=== PATIENT | female | born 1960 | race Caucasian/White ===

== ENCOUNTER 2024-07-12 09:23 | Day surgery (SDC) | payer OTHER ==
--- NOTE | 2024-07-10 15:31 | RAD REPORT ---
EXAM: Chest Pa And Lat (2 Views) HISTORY: 64 years Female Pre-op pending carpal tunnel release COMPARISON: None. FINDINGS: LUNGS/PLEURA: The lungs are clear. No pleural effusions or pneumothorax. No pulmonary edema. MEDIASTINUM: The mediastinal silhouette is within normal limits. CARDIAC: The cardiac silhouette is within normal limits. UPPER ABDOMEN: No significant abnormality. BONES: No acute abnormality. LINES/TUBES/OTHER: N/A IMPRESSION: No evidence of acute cardiopulmonary disease.
[2024-07-10 15:52] LABS: PT Prothrombin Time 9.9 SECONDS (9.4-12.5); PTT, Activated Partial Thromb 29.1 SECONDS (24.3-36.9); Protime INR 0.94
[2024-07-12] MEDS ORDERED: propofoL 200 MG/20 ML VIAL IV ONE (09:46)
[2024-07-12] MEDS ORDERED: ONDANSETRON 4 MG/2 ML VIAL ONE (09:46)
[2024-07-12] MEDS ORDERED: FENTANYL CITR 100 MCG/2 ML ONE (09:46)
[2024-07-12] MEDS ORDERED: LIDOCAINE 1% MPF 5 ML VIAL ONE (09:46)
[2024-07-12] MEDS ORDERED: KETOROLAC 30 MG/ML INJ ONE (09:46)
[2024-07-12] MEDS ORDERED: MIDAZOLAM HCL 2 MG/2 ML INJ ONE (09:46)
[2024-07-12] MEDS: Ringers Lactate 1,000 ML IV ONE (09:50)
[2024-07-12] MEDS: CEFAZOLIN SODIUM 1 GM/VIAL ONE (10:24)
[2024-07-12] MEDS: BUPIVACAINE 0.25% PF 10 ML VIAL ONE (10:55)
[2024-07-12] MEDS ORDERED: GLYCOPYRROLATE 0.2 MG/ML SYR ONE (10:58)
--- NOTE | 2024-07-12 11:29 | P.BOP ---
Preoperative diagnosis: Right carpal tunnel syndrome Postoperative diagnosis: Same Primary procedure: Right open carpal tunnel release Pickle Cutter: NONE,NONE Estimated blood loss: 3 cc Specimen: None Anesthesia: General Complications: None Implants: None Fluids & blood products: Per anesthesia record Transferred to: Recovery Room Condition: Good
--- NOTE | 2024-07-12 11:31 | P.OP ---
Preoperative diagnosis: Right carpal tunnel syndrome Postoperative diagnosis: Same Primary procedure: Right open carpal tunnel release Anesthesia: General Estimated blood loss: 3 cc Specimen: None Findings: See dictation Operative Technique: Reason for Surgery: Mago had physical exam findings as well as EMG findings consistent with right carpal tunnel syndrome. I discussed with the patient at length risks and benefits associated with the procedure. She expressed understanding and elected proceed with operative treatment. Description of Procedure: After informed consent was obtained the patient was identified in the preoperative holding area. The right upper extremity was marked patient. Patient then brought back to the operating room transferred the operative table in supine fashion and placed under anesthesia. The right upper extremity was exsanguinated and the tourniquet was inflated to 250 mmHg. Approximately a 3 cm longitudinal incision was made just ulnar to the thenar crease. Dissection was then taken down to the palmar fascia which was identified. A [place] elevator was then placed just deep to the palmar fascia to protect the median nerve at all times. A 15 blade was then used to release the palmar fascia and transverse carpal ligament leaving the [place] elevator to protect the nerve at all times. Any remaining fascial bands were then released using a blunt tip Metzenbaum scissor. The tips were him superficially to protect the median nerve at all times. The wound was then irrigated thoroughly with normal saline. The skin was approximated using a 5-0 Prolene. Sterile dressings were applied and patient was awakened and transferred to PACU in stable condition. Postoperative plan: The patient will follow-up in 1 to 2 weeks for wound check and suture removal. She may begin to work on range of motion exercises at this time. Complications: None Implants: None Fluids & blood products: Per anesthesia record Transferred to: Recovery Room Condition: Good
--- NOTE | 2024-07-12 12:34 | EKG ---
Test Date: 2024-07-10 Test Time: 15:25:38 Medical Oncologist: JEANA MEASUREMENT RESULTS: Intervals: Rate: 57 AL: 124 QRSD: 86 QT: 394 QTc: 383 [place]: P: 66 AL: 124 QRS: 74 T: 88 INTERPRETIVE STATEMENTS: Sinus bradycardia with sinus arrhythmia Otherwise normal ECG No previous ECG available for comparison Electronically Signed On 07-12-24 12:30:54 IMP[employer] CUST[employer]ER SERVICE MANAGER by Chase Cornejo
[2024-07-12] MEDS: TRAMADOL HCL 50 MG TAB ONE (12:36)
[2024-07-12 13:07] VITALS: BP 148/81; TEMP 97.6; O2SAT 94
== END 2024-07-12 12:53 | disposition home or self-care (01) ==
LOC: OR 09:23
PROVIDERS: ATTEND Orthopaedic Surgery Sports Medicine
PROC: 01N50ZZ Release Median Nerve, Open Approach (ICD-10-PCS; principal; 2024-07-12 11:00)
DX: G56.01 Carpal tunnel syndrome, right upper limb (principal)
CPT/HCPCS: 93005; 36415; 85610; 85730; 71046; 64721; J2704; J2003; J2250; J3010; J2405; J7120; J0690